=== PATIENT | male | born 1955 | race Caucasian/White ===

== ENCOUNTER 2017-05-22 17:18 | Inpatient (IN) | payer OTHER ==
[~2017-05-22] VITALS: Ht 185.4 cm; Wt 78.1 kg
[2017-05-22 17:22] VITALS: BP 132/80
[2017-05-22 18:32] LABS: BASO % 0.4 % (0.0-1.0); EOS % 0.2 % (1.0-4.0); HEMATOCRIT 47.3 % (42.0-52.0); HEMOGLOBIN 16.1 g/dl (14.0-18.0); LYMPH # 1.2 10*3/uL (1.3-4.4); LYMPH % 14.7 % (27.0-41.0); MEAN CELL VOLUME 97.5 fl (80.0-94.0); MEAN CORPUSCULAR HGB 33.2 pg (27.0-31.0); MONO # 0.7 10*3/uL (0.1-1.0); MONO % 8.3 % (3.0-9.0); NEUT # 6.3 10*3/uL (2.3-7.9); NEUT % 75.9 % (47.0-73.0); PLATELET COUNT AUTOMATED 122 10*3/uL (130-400); RED BLOOD COUNT 4.85 10*6/uL (4.50-5.90); RED CELL DISTRI WIDTH 12.8 % (0-14.5); WHITE BLOOD COUNT 8.3 10*3/uL (4.8-10.8)
[2017-05-22 18:46] LABS: ALBUMIN 3.1 gm/dl (3.1-4.5); ALKALINE PHOSPHATASE 100 U/L (45-117); CHLORIDE 101 mmol/L (98-107); CPK 624 U/L (39-308); CREATININE 0.61 mg/dL (0.70-1.30); POTASSIUM 3.7 mmol/L (3.5-5.1); SGOT/AST 91 IU/L (3-35); SGPT/ALT 73 U/L (12-78); SODIUM 135 mmol/L (136-145); TOTAL PROTEIN 7.1 gm/dL (6.4-8.2)
[2017-05-22 18:57] LABS: BUN 1 mg/dl (7-24)
[2017-05-22 19:42] VITALS: BP 125/72
[2017-05-22 21:11] VITALS: BP 146/81
[2017-05-22] MEDS ORDERED: PROZAC40 M1 PO (21:54)
[2017-05-23] VITALS: BP 146/80
[2017-05-23 03:17] LABS: BASO % 0.4 % (0.0-1.0); EOS % 0.4 % (1.0-4.0); HEMATOCRIT 44.7 % (42.0-52.0); LYMPH # 1.6 10*3/uL (1.3-4.4); LYMPH % 22.1 % (27.0-41.0); MEAN CELL VOLUME 97.6 fl (80.0-94.0); MEAN CORPUSCULAR HGB 32.8 pg (27.0-31.0); MEAN CORPUSCULAR HGB CONC 33.6 g/dl (33.0-37.0); MONO # 0.8 10*3/uL (0.1-1.0); MONO % 10.7 % (3.0-9.0); NEUT # 4.8 10*3/uL (2.3-7.9); NEUT % 66.1 % (47.0-73.0); PLATELET COUNT AUTOMATED 113 10*3/uL (130-400); RED BLOOD COUNT 4.58 10*6/uL (4.50-5.90); RED CELL DISTRI WIDTH 12.9 % (0-14.5); WHITE BLOOD COUNT 7.3 10*3/uL (4.8-10.8)
[2017-05-23 03:29] LABS: ACT PARTIAL THROMBO TIME 29.4 SECONDS (20.8-31.5); INTERNATIONAL NORM RATIO 0.9 (2.0-3.5)
[2017-05-23 03:33] LABS: ALBUMIN 2.8 gm/dl (3.1-4.5); ALKALINE PHOSPHATASE 92 U/L (45-117); BUN 1 mg/dl (7-24); CHLORIDE 105 mmol/L (98-107); CHOLESTEROL 165 mg/dL (<200); CREATININE 0.57 mg/dL (0.70-1.30); FREE T4 0.83 ng/dl (0.76-1.46); HDL CHOLESTEROL 122 mg/dl (40-60); LDL CHOLESTEROL 34 mg/dL (9-159); PHOSPHOROUS 3.5 mg/dL (2.5-4.9); POTASSIUM 3.9 mmol/L (3.5-5.1); SGOT/AST 75 IU/L (3-35); SGPT/ALT 67 U/L (12-78); SODIUM 139 mmol/L (136-145); TOTAL PROTEIN 6.5 gm/dL (6.4-8.2); TRIGLYCERIDES 45 mg/dl (<150); VLDL CHOLESTEROL 9 mg/dL (6-40)
[2017-05-23 04:00] VITALS: BP 162/90
[2017-05-23 05:25] LABS: BILIRUBIN NEGATIVE (NEGATIVE); BLOOD TRACE-INTACT (NEGATIVE); CLARITY CLEAR (CLEAR); COLOR YELLOW (YELLOW); GLUCOSE NEGATIVE (NEGATIVE); KETONE NEGATIVE (NEGATIVE); LEUKO ESTERASE NEGATIVE (NEGATIVE); NITRITE NEGATIVE (NEGATIVE); UROBILINOGEN 0.2 E.U./dl (0.2-1.0)
[2017-05-23 05:36] LABS: URINE AMPHETAMINES < 1000 (1000ng/ml); URINE BARBITURATES < 200 (200ng/ml); URINE BENZODIAZEPINES < 200 (200ng/ml); URINE CANNABINOIDS (THC) < 50 (50ng/ml); URINE COCAINE < 300 (300ng/ml); URINE METHADONE < 300 (300ng/ml); URINE OPIATES < 300 (300ng/ml); WBC 0-2 wbc/hpf (0-5)
[2017-05-23 05:37] LABS: URINE PHENCYCLIDINE < 25 (25ng/ml)
[2017-05-23 08:00] VITALS: BP 168/96
[2017-05-23 09:00] LABS: VITAMIN D, 25-HYDROXY 9.5 ng/mL (30-100)
[2017-05-23 12:00] VITALS: BP 168/96
[2017-05-23 16:00] VITALS: BP 146/85
[2017-05-23 20:00] VITALS: BP 164/89
[2017-05-24] VITALS: BP 163/88
[2017-05-24 04:00] VITALS: BP 159/90
[2017-05-24 06:09] LABS: ALBUMIN 2.6 gm/dl (3.1-4.5); ALKALINE PHOSPHATASE 93 U/L (45-117); BUN 3 mg/dl (7-24); CHLORIDE 101 mmol/L (98-107); CREATININE 0.52 mg/dL (0.70-1.30); POTASSIUM 3.5 mmol/L (3.5-5.1); SGOT/AST 61 IU/L (3-35); SGPT/ALT 56 U/L (12-78); SODIUM 138 mmol/L (136-145); TOTAL PROTEIN 6.1 gm/dL (6.4-8.2)
[2017-05-24 08:00] VITALS: BP 156/90
[2017-05-24 12:00] VITALS: BP 149/91
[2017-05-24 16:00] VITALS: BP 142/94
[2017-05-24 20:00] VITALS: BP 141/87
[2017-05-25] VITALS: BP 136/70
[2017-05-25 04:00] VITALS: BP 169/95
[2017-05-25 08:00] VITALS: BP 152/100
[2017-05-25 12:00] VITALS: BP 154/94
[2017-05-25 15:48] VITALS: BP 148/90
[2017-05-25 20:00] VITALS: BP 136/84
[2017-05-26 04:00] VITALS: BP 148/90
[2017-05-26 04:22] LABS: BASO % 0.4 % (0.0-1.0); EOS # 0.1 10*3/uL (0.0-0.4); EOS % 1.5 % (1.0-4.0); HEMATOCRIT 42.3 % (42.0-52.0); HEMOGLOBIN 14.8 g/dl (14.0-18.0); LYMPH # 1.6 10*3/uL (1.3-4.4); LYMPH % 22.4 % (27.0-41.0); MEAN CORPUSCULAR HGB 33.9 pg (27.0-31.0); MEAN PLATELET VOLUME 10.6 fl (9.6-12.3); MONO # 0.9 10*3/uL (0.1-1.0); MONO % 12.7 % (3.0-9.0); NEUT # 4.5 10*3/uL (2.3-7.9); NEUT % 62.9 % (47.0-73.0); PLATELET COUNT AUTOMATED 116 10*3/uL (130-400); RED BLOOD COUNT 4.36 10*6/uL (4.50-5.90); RED CELL DISTRI WIDTH 12.6 % (0-14.5); WHITE BLOOD COUNT 7.2 10*3/uL (4.8-10.8)
[2017-05-26 08:00] VITALS: BP 199/90
[2017-05-26 12:00] VITALS: BP 145/98
[2017-05-26 16:00] VITALS: BP 142/86
[2017-05-26 20:00] VITALS: BP 158/88
[2017-05-27] VITALS: BP 145/88
[2017-05-27 06:59] LABS: CREATININE 0.72 mg/dL (0.70-1.30)
[2017-05-27 08:00] VITALS: BP 149/90
[2017-05-27 12:00] VITALS: BP 137/86
[2017-05-27 16:00] VITALS: BP 148/85
[2017-05-27 20:00] VITALS: BP 138/90
[2017-05-28] VITALS: BP 135/81
[2017-05-28 08:00] VITALS: BP 145/84
[2017-05-28 12:00] VITALS: BP 112/58
[2017-05-28 16:00] VITALS: BP 136/83
[2017-05-28 20:00] VITALS: BP 137/74
[2017-05-29] VITALS: BP 129/74
[2017-05-29 06:22] LABS: BASO % 0.3 % (0.0-1.0); EOS # 0.1 10*3/uL (0.0-0.4); HEMOGLOBIN 14.2 g/dl (14.0-18.0); LYMPH # 1.4 10*3/uL (1.3-4.4); LYMPH % 20.9 % (27.0-41.0); MEAN CELL VOLUME 96.7 fl (80.0-94.0); MEAN CORPUSCULAR HGB 33.5 pg (27.0-31.0); MEAN CORPUSCULAR HGB CONC 34.6 g/dl (33.0-37.0); MEAN PLATELET VOLUME 10.4 fl (9.6-12.3); MONO # 1.2 10*3/uL (0.1-1.0); MONO % 17.5 % (3.0-9.0); NEUT # 4.1 10*3/uL (2.3-7.9); NEUT % 59.9 % (47.0-73.0); PLATELET COUNT AUTOMATED 173 10*3/uL (130-400); RED BLOOD COUNT 4.24 10*6/uL (4.50-5.90); RED CELL DISTRI WIDTH 12.7 % (0-14.5); WHITE BLOOD COUNT 6.9 10*3/uL (4.8-10.8)
[2017-05-29 06:49] LABS: ALBUMIN 2.4 gm/dl (3.1-4.5); ALKALINE PHOSPHATASE 74 U/L (45-117); BUN 6 mg/dl (7-24); CHLORIDE 97 mmol/L (98-107); CREATININE 0.58 mg/dL (0.70-1.30); SGOT/AST 28 IU/L (3-35); SGPT/ALT 36 U/L (12-78); SODIUM 137 mmol/L (136-145); TOTAL PROTEIN 6.6 gm/dL (6.4-8.2)
[2017-05-29 08:00] VITALS: BP 136/78; BP 156/90
[2017-05-29 12:00] VITALS: BP 155/86
[2017-05-29 16:00] VITALS: BP 145/83
[2017-05-29 20:00] VITALS: BP 144/76
[2017-05-30] VITALS: BP 150/90
[2017-05-30 08:00] VITALS: BP 146/86
[2017-05-30 12:00] VITALS: BP 142/67
[2017-05-30] MEDS ORDERED: LISINOPRIL10 M1 PO (12:21)
[2017-05-30] MEDS ORDERED: NATURE'S BLEND F1 MG PO (12:21)
[2017-05-30] MEDS ORDERED: NATURE'S BLEND100 M2 PO (12:21)
[2017-05-30] MEDS ORDERED: MOTRIN 600 MG E4 TAB PO (12:21)
[2017-05-30] MEDS ORDERED: METOPROLOL SUCC25 M2 PO (12:21)
[2017-05-30] MEDS ORDERED: Vitamin D PO (12:21)
== END 2017-05-30 14:34 | disposition other institution (70) | DRG 552 ==
LOC: ED 17:18 → EDHOLD 20:05 → ICCU 20:05 → 4E 20:05 → ICCU 20:58 → 4E 05-26 07:40
PROVIDERS: Emergency Medicine; Internal Medicine; Registered Nurse; Student in an Organized Health Care Education/Training Program
DX: S22.080A Wedge compression fracture of T11-T12 vertebra, initial encounter for closed fracture (principal); F10.121 Alcohol abuse with intoxication delirium; E44.0 Moderate protein-calorie malnutrition; D69.6 Thrombocytopenia, unspecified; R65.10 Systemic inflammatory response syndrome (SIRS) of non-infectious origin without acute organ dysfunction; E87.1 Hypo-osmolality and hyponatremia; E83.51 Hypocalcemia; S32.030A Wedge compression fracture of third lumbar vertebra, initial encounter for closed fracture; R55 Syncope and collapse; I10 Essential (primary) hypertension; F32.9 Major depressive disorder, single episode, unspecified; F41.9 Anxiety disorder, unspecified; F17.210 Nicotine dependence, cigarettes, uncomplicated; R19.7 Diarrhea, unspecified; R74.0 Nonspecific elevation of levels of transaminase and lactic acid dehydrogenase [LDH]; D75.89 Other specified diseases of blood and blood-forming organs; D72.810 Lymphocytopenia; M47.892 Other spondylosis, cervical region; W18.30XA Fall on same level, unspecified, initial encounter; Z68.23 Body mass index [BMI] 23.0-23.9, adult; Y93.89 Activity, other specified; Y92.89 Other specified places as the place of occurrence of the external cause; Y99.8 Other external cause status; Z79.899 Other long term (current) drug therapy

== ENCOUNTER 2017-07-13 14:14 | Inpatient (IN) | payer OTHER ==
[~2017-07-13] VITALS: Ht 182.8 cm; Wt 79.4 kg
--- NOTE | ~2017-07-13 | PR ---
[place], [place] PROGRESS NOTE NAME: RACHEL RAMÍREZ UNIT #: [id number] ROOM: 515 DOCTOR: LATRELL PARIS BIRTHDATE: [birth year] DOS: 07/17/2017 SUBJECTIVE: The patient offers no complaints, states he is feeling well. Describes a good appetite without nausea, vomiting, diarrhea. Denies orthopnea, PND, dyspnea. PHYSICAL EXAMINATION: VITAL SIGNS: Blood pressure is 145/90, pulse is 100, respirations 18, temperature 97 degrees. GENERAL APPEARANCE: A well-appearing male, awake, alert, oriented x 3. No apparent distress ____. HEENT: Conjunctivae pink and moist. NECK: There is no JVD appreciated. LUNGS: Clear to auscultation and percussion. HEART: Regular without S3 gallop or rub. ABDOMEN: Soft, positive bowel sounds x 4. EXTREMITIES: No clubbing, cyanosis, no edema noted. LABORATORY DATA: Today, sodium was 121, potassium 3.9, chloride 93, CO2 of 28, BUN 4, creatinine 0.48, glucose is 154, phosphorus 0.8, magnesium is 2.0, calcium 7.6, albumin 3.2, corrected calcium is 9.0. Urine is yellow and clear in color, specific gravity of 1.015 with 15 rbc's, wbc's with trace bacteria noted. IMPRESSION: 1. Hyponatremia. Continues to improve at appropriate rate. Currently IV fluids have been changed from hypertonic with ____ solution of half normal saline with 40 mEq of potassium. 2. Hypokalemia. This has been supplemented with oral and IV potassium as being managed by the primary service. RECOMMENDATIONS: Agree with current management and IV fluids as ordered. Continue to monitor electrolytes daily and replace as needed. He is otherwise ____ from a renal perspective and we will sign off. Thank you for allowing us to participate in the care of the patient. [place], [place] PROGRESS NOTE NAME: RACHEL RAMÍREZ UNIT #: [id number] ROOM: 515 DOCTOR: LATRELL MADDENPARIS BIRTHDATE: [birth year] PARIS SAMS DO CM:CLARA [id number] PARIS SAMS DO 07/18/17 1658 interface
--- NOTE | ~2017-07-13 | PR ---
[place], [place] PROGRESS NOTE NAME: RACHEL RAMÍREZ UNIT #: [id number] ROOM: [facility] DOCTOR: JONNIE NARANJO MD BIRTHDATE: [birth year] DOS: 07/15/2017 SUBJECTIVE: The patient was seen and evaluated in followup of hyponatremia, remains in the ICU, overall doing well, though does not report any specific complaints. OBJECTIVE: VITAL SIGNS: Temperature 98.1, 98, 18, 151/84, 95% on room air. GENERAL: Awake, alert and oriented without acute distress, unkempt appearance. HEENT: Normocephalic, atraumatic. LUNGS: Clear. Diminished at bilateral bases. CARDIOVASCULAR: Regular rate. No rub. Slightly tachycardic, but high normal at this time. ABDOMEN: Soft, nontender. EXTREMITIES: Without cyanosis, clubbing or edema. LABORATORY DATA AND DIAGNOSTICS: White blood cell count 11.2, hemoglobin 13.8, platelets 129. Sodium is 125, up nicely from 122 and 121, rate had to be decreased because of rapid correction initially with severe hyponatremia. BUN and creatinine are 3 and 0.62, potassium 3.4, calcium 7.6, albumin 2.4. ASSESSMENT AND PLAN: 1. Hyponatremia was severe, rate of correction was rapid because of her original severe hyponatremia, now improving and rate is acceptable. Continue on D5W. Hopefully, we will titrate down the rate of this maintenance IV fluids in the next 12 to 24 hours and eventually stop all altogether and allow for ____ correction, as I suspect much of this was beer potomania and low solute intake. He seems to be eating a bit better now. 2. Hypokalemia is also being replaced with maintenance IV fluids and oral intake. 3. Alcohol abuse, monitor for withdrawal symptoms. 4. Hypertension, fair control. JONNIE NARANJO MD CM:PNTRANS JONNIE NARANJO MD 07/17/1739 interface
--- NOTE | ~2017-07-13 | CON ---
[place], [place] REPORT OF CONSULTATION NAME: RACHEL RAMÍREZ UNIT #: [id number] ROOM: [facility] DOCTOR: LILIBETH GARCIA MD BIRTHDATE: [birth year] DOS: 07/14/2017 REASON FOR CONSULTATION: Hyponatremia. HISTORY OF PRESENT ILLNESS: The patient is a 61-year-old male. He was admitted to the hospital yesterday. He presented apparently being found down by a friend on the floor. The patient is an alcoholic. He does not recall the incident. Apparently, he was drinking prior to this event. He gives a history of hypertension. Per the ER notes, he was intoxicated during the evaluation of him. He had a CT scan of the head, which showed no acute abnormalities. He had routine labs, which showed severe hyponatremia with sodium of 108. The patient was started on a banana bag at 100 mL per hour. Initial BUN and creatinine were 4 and 0.5. We were consulted yesterday. I was called by the ICU nurse. I gave instructions to decrease the banana bag to 50 mL per hour and to call with lab results if the sodium level was greater than 115. Labs were ordered every 6 hours by my instructions. It seems he had some improvement to level of 113 and this morning's labs showed sodium of 119. I was called with this lab and discussed with the nurse to change the fluids to half normal saline at 50 mL per hour with potassium since he did have hypokalemia. He also was ordered an oral potassium supplement. When I had seen the patient this afternoon, he was sitting in bed. He was awake and alert, but was somewhat lethargic. He had a tray in front of him and asked me if this was his to eat. It does not appear he has had issues with hyponatremia. He was here in the hospital about 2 months ago, which showed normal sodium levels. ALLERGIES: No known drug allergies. HOME MEDICATIONS: Include ascorbic acid, vitamin D, fluoxetine, ibuprofen, lisinopril, ____, thiamine, trazodone, metoprolol. PAST MEDICAL HISTORY: 1. Hypertension. 2. Anxiety. 3. History of compression fractures. 4. Tobacco abuse. 5. Alcohol abuse. FAMILY HISTORY: Negative for fluid, electrolyte disorders or chronic kidney disease, otherwise noncontributory. SOCIAL HISTORY: As mentioned, he drinks a number of alcoholic beverages per day for a number of years. He also smokes since age 17 pack a day. There is no report of illicit drugs. REVIEW OF SYSTEMS: As per HPI, otherwise a 10-point review of systems was reviewed and was negative or limited. PHYSICAL EXAMINATION: VITAL SIGNS: Temperature 99.5, pulse 110, respiration rate 20, blood pressure 164/90. [place], [place] REPORT OF CONSULTATION NAME: RACHEL RAMÍREZ UNIT #: [id number] ROOM: [facility] DOCTOR: LILIBETH GARCIA MD BIRTHDATE: [birth year] GENERAL: He is lethargic, but awake and arousable, on no acute distress. HEENT AND NECK: Shows no JVD. Sclerae are anicteric. Mucous membranes appeared somewhat dry. Pharynx was clear. Neck is supple. Trachea is midline. No neck lymphadenopathy or thyromegaly. LUNGS: Fairly clear. No crackles, wheezing or rales. No tactile fremitus. He is not using accessory muscles of respiration. HEART: Normal S1, S2. No rub, thrill or gallop. He was tachycardic. ABDOMEN: Soft, mild distention. There is no organomegaly, rigidity, rebound or guarding. There is no CVA tenderness. EXTREMITIES: Showed no edema. There is no lower extremity lymphadenopathy. Distal pulses are 2+. SKIN: Showed no overt rash. There is no petechia or purpura. Skin temperature is warm. NEUROLOGIC: He was awake, alert. He was moving his extremities. Cranial nerves appeared to be intact. LABORATORY DATA: Hemoglobin 15, white count of 10.5, platelets 116. BUN 5, creatinine 0.5, sodium 119, potassium 2.6, CO2 of 24, calcium 7.5, phosphorus 1.5, magnesium 2.0, albumin of 2.5. TSH is within normal limits. IMPRESSION: 1. Hyponatremia, severe. Etiology is likely multifactorial. I suspect the patient may have element of beer potomania with low ____ intake contributing. He may have an element of volume depletion contributing as well. The patient is on medications as well that can lead to syndrome of inappropriate antidiuretic hormone, which may be a partial contributor. 2. Syncope with a question of whether or not it is related to his hyponatremia. 3. History of alcohol abuse. 4. Hypertension. 5. Thrombocytopenia. 6. Malnutrition. 7. Encephalopathy. PLAN: 1. Fluids are to continue with half normal saline for now. Although, this is hypotonic, I do have concerns about the rapid rise in his sodium levels. Potassium has been added in view of his hypokalemia. He does have a number of electrolyte disorders. His phosphorus will be replaced. Continue to monitor labs very carefully and replace electrolytes as needed. 2. BMPs will be drawn every 6 hours. We will adjust his fluids based off of this. 3. Monitor very closely for delirium tremens. 5. Increase nutrition. 6. Continue supportive care. Thank you for this consultation. We will follow with you. [place], [place] REPORT OF CONSULTATION NAME: RACHEL RAMÍREZ UNIT #: [id number] ROOM: [facility] DOCTOR: RADHA PALAFOX,LILIBETH Mccurdy BIRTHDATE: [birth year] LILIBETH GARCIA MD CM:CONSTR:REPORT OF CONSULTATION 24 07/14/171956 interface
[~2017-07-13 14:14] MED LIST: LISINOPRIL10 M1 PO; METOPROLOL SUCC25 M2 PO; MOTRIN 600 MG E4 TAB PO; NATURE'S BLEND F1 MG PO; NATURE'S BLEND100 M2 PO; PROZAC40 M1 PO; Vitamin D PO
[2017-07-13 14:16] VITALS: BP 161/80
[2017-07-13 14:43] LABS: HEMATOCRIT 43.1 % (42.0-52.0); HEMOGLOBIN 16.3 g/dl (14.0-18.0); MEAN CELL VOLUME 87.6 fl (80.0-94.0); MEAN CORPUSCULAR HGB 33.1 pg (27.0-31.0); MEAN PLATELET VOLUME 9.5 fl (9.6-12.3); PLATELET COUNT AUTOMATED 157 10*3/uL (130-400); RED BLOOD COUNT 4.92 10*6/uL (4.50-5.90); RED CELL DISTRI WIDTH 13.2 % (0-14.5); WHITE BLOOD COUNT 15.4 10*3/uL (4.8-10.8)
[2017-07-13 14:53] LABS: ALKALINE PHOSPHATASE 97 U/L (45-117); BUN 4 mg/dl (7-24); CREATININE 0.53 mg/dL (0.70-1.30); POTASSIUM 3.5 mmol/L (3.5-5.1); SGOT/AST 74 IU/L (3-35); SGPT/ALT 42 U/L (12-78); TOTAL PROTEIN 6.5 gm/dL (6.4-8.2)
[2017-07-13 14:56] LABS: SODIUM 108 mmol/L (136-145)
[2017-07-13 14:57] LABS: ACETAMINOPHEN (TYLENOL) < 2.0 ug/ml (10-30); CHLORIDE 73 mmol/L (98-107)
[2017-07-13 15:00] VITALS: BP 132/90
[2017-07-13 15:05] LABS: MEAN CORPUSCULAR HGB CONC 37.8 g/dl (33.0-37.0)
[2017-07-13 15:08] LABS: TOTAL CELLS COUNTED 100 #CELLS
[2017-07-13 15:09] LABS: PLATELET SUFFICIENCY NORMAL (NORMAL)
[2017-07-13 16:00] VITALS: BP 163/100
[2017-07-13] MEDS ORDERED: ZYPREXA10 M1 PO (16:31)
[2017-07-13] MEDS ORDERED: TRAZODONE50 MG PO (16:32)
[2017-07-13 17:03] VITALS: BP 154/78
[2017-07-13 17:12] VITALS: BP 171/90
[2017-07-13] MEDS ORDERED: VITAMIN D50000 UNIT PO (17:29)
[2017-07-13 17:30] LABS: ABG BASE EXCESS -3.4 mmol/L (-2.0-2.0); ABG HCO3 16.9 mmol/l (22-26); ARTERIAL BLOOD GAS PCO2 20.7 mmHg (35-45); ARTERIAL BLOOD GAS PH 7.522 (7.35-7.45); ARTERIAL BLOOD GAS PO2 87.3 mmHg (80-90)
[2017-07-13] MEDS ORDERED: ASCORBIC ACID500 M2 PO (17:30)
[2017-07-13] MEDS ORDERED: METOPROLOL25 MG PO (17:31)
[2017-07-13 19:09] LABS: BILIRUBIN NEGATIVE (NEGATIVE); BLOOD 3+ (NEGATIVE); CLARITY CLOUDY (CLEAR); COLOR YELLOW (YELLOW); GLUCOSE NEGATIVE (NEGATIVE); KETONE 1+ (NEGATIVE); LEUKO ESTERASE NEGATIVE (NEGATIVE); NITRITE NEGATIVE (NEGATIVE); SPECIFIC GRAVITY 1.025 (1.005-1.030)
[2017-07-13 19:22] LABS: URINE CHLORIDE, RANDOM 89 mmol/L
[2017-07-13 19:24] LABS: BACTERIA 4+; MUCOUS TRACE
[2017-07-13 19:30] LABS: URINE AMPHETAMINES < 1000 (1000ng/ml); URINE BARBITURATES < 200 (200ng/ml); URINE BENZODIAZEPINES < 200 (200ng/ml); URINE CANNABINOIDS (THC) < 50 (50ng/ml); URINE COCAINE < 300 (300ng/ml); URINE METHADONE < 300 (300ng/ml); URINE OPIATES < 300 (300ng/ml); URINE PHENCYCLIDINE < 25 (25ng/ml)
[2017-07-13 20:00] VITALS: BP 164/98
[2017-07-14] VITALS: BP 97/60
[2017-07-14 00:40] LABS: BUN 4 mg/dl (7-24); CHLORIDE 80 mmol/L (98-107); CREATININE 0.52 mg/dL (0.70-1.30); POTASSIUM 3.1 mmol/L (3.5-5.1)
[2017-07-14 00:43] LABS: SODIUM 113 mmol/L (136-145)
[2017-07-14 04:00] VITALS: BP 126/73
[2017-07-14 07:03] LABS: ALBUMIN 2.5 gm/dl (3.1-4.5); ALKALINE PHOSPHATASE 83 U/L (45-117); BUN 5 mg/dl (7-24); CHLORIDE 83 mmol/L (98-107); CHOLESTEROL 94 mg/dL (<200); CREATININE 0.47 mg/dL (0.70-1.30); FREE T4 1.23 ng/dl (0.76-1.46); HDL CHOLESTEROL 79 mg/dl (40-60); LDL CHOLESTEROL 4 mg/dL (9-159); PHOSPHOROUS 1.5 mg/dL (2.5-4.9); POTASSIUM 2.6 mmol/L (3.5-5.1); SGOT/AST 62 IU/L (3-35); SGPT/ALT 37 U/L (12-78); TOTAL PROTEIN 5.5 gm/dL (6.4-8.2); TRIGLYCERIDES 57 mg/dl (<150); VLDL CHOLESTEROL 11 mg/dL (6-40)
[2017-07-14 07:08] LABS: THYROID STIM HORMONE (HS) 0.688 uIU/ml (0.358-4.75)
[2017-07-14 07:09] LABS: BASO % 0.2 % (0.0-1.0); EOS % 0.1 % (1.0-4.0); HEMATOCRIT 40.7 % (42.0-52.0); LYMPH # 0.7 10*3/uL (1.3-4.4); MEAN CELL VOLUME 89.6 fl (80.0-94.0); MEAN CORPUSCULAR HGB CONC 36.9 g/dl (33.0-37.0); MEAN PLATELET VOLUME 10.1 fl (9.6-12.3); MONO # 0.8 10*3/uL (0.1-1.0); MONO % 7.9 % (3.0-9.0); NEUT # 8.8 10*3/uL (2.3-7.9); PLATELET COUNT AUTOMATED 116 10*3/uL (130-400); RED BLOOD COUNT 4.54 10*6/uL (4.50-5.90); RED CELL DISTRI WIDTH 13.4 % (0-14.5); WHITE BLOOD COUNT 10.5 10*3/uL (4.8-10.8)
[2017-07-14 07:10] LABS: SODIUM 119 mmol/L (136-145)
[2017-07-14 08:00] VITALS: BP 148/84
[2017-07-14 08:19] LABS: VITAMIN D, 25-HYDROXY 23.4 ng/mL (30-100)
[2017-07-14 12:00] VITALS: BP 164/90
[2017-07-14 14:38] LABS: ALBUMIN 2.7 gm/dl (3.1-4.5); ALKALINE PHOSPHATASE 89 U/L (45-117); BUN 4 mg/dl (7-24); CHLORIDE 87 mmol/L (98-107); CREATININE 0.44 mg/dL (0.70-1.30); POTASSIUM 2.9 mmol/L (3.5-5.1); SGOT/AST 59 IU/L (3-35); SGPT/ALT 37 U/L (12-78); SODIUM 121 mmol/L (136-145); TOTAL PROTEIN 6.3 gm/dL (6.4-8.2)
[2017-07-14 16:00] VITALS: BP 108/75
[2017-07-14 20:00] VITALS: BP 108/75
[2017-07-14 20:10] LABS: ALBUMIN 2.6 gm/dl (3.1-4.5); ALKALINE PHOSPHATASE 77 U/L (45-117); BUN 4 mg/dl (7-24); CHLORIDE 88 mmol/L (98-107); CREATININE 0.59 mg/dL (0.70-1.30); PHOSPHOROUS 2.3 mg/dL (2.5-4.9); POTASSIUM 3.5 mmol/L (3.5-5.1); SGOT/AST 48 IU/L (3-35); SGPT/ALT 35 U/L (12-78); SODIUM 122 mmol/L (136-145)
[2017-07-15] VITALS: BP 131/78
[2017-07-15 02:34] LABS: ALBUMIN 2.4 gm/dl (3.1-4.5); ALKALINE PHOSPHATASE 71 U/L (45-117); BUN 3 mg/dl (7-24); CHLORIDE 90 mmol/L (98-107); CREATININE 0.62 mg/dL (0.70-1.30); PHOSPHOROUS 2.5 mg/dL (2.5-4.9); POTASSIUM 3.4 mmol/L (3.5-5.1); SGOT/AST 38 IU/L (3-35); SGPT/ALT 31 U/L (12-78); SODIUM 125 mmol/L (136-145); TOTAL PROTEIN 5.8 gm/dL (6.4-8.2)
[2017-07-15 04:00] VITALS: BP 145/76
[2017-07-15 06:15] LABS: HEMATOCRIT 38.3 % (42.0-52.0); HEMOGLOBIN 13.8 g/dl (14.0-18.0); LYMPH # 0.8 10*3/uL (1.3-4.4); LYMPH % 6.9 % (27.0-41.0); MEAN CELL VOLUME 91.2 fl (80.0-94.0); MEAN CORPUSCULAR HGB 32.9 pg (27.0-31.0); MEAN PLATELET VOLUME 10.4 fl (9.6-12.3); MONO # 0.9 10*3/uL (0.1-1.0); MONO % 7.7 % (3.0-9.0); NEUT # 9.5 10*3/uL (2.3-7.9); NEUT % 84.8 % (47.0-73.0); PLATELET COUNT AUTOMATED 129 10*3/uL (130-400); RED CELL DISTRI WIDTH 13.8 % (0-14.5); WHITE BLOOD COUNT 11.2 10*3/uL (4.8-10.8)
[2017-07-15 08:00] VITALS: BP 151/84
[2017-07-15 12:00] VITALS: BP 151/92
[2017-07-15 16:00] VITALS: BP 128/79
[2017-07-15 20:00] VITALS: BP 128/75
[2017-07-16] VITALS: BP 135/75
[2017-07-16 04:00] VITALS: BP 171/83
[2017-07-16 05:17] LABS: BASO % 0.1 % (0.0-1.0); EOS % 0.1 % (1.0-4.0); HEMATOCRIT 37.5 % (42.0-52.0); HEMOGLOBIN 13.7 g/dl (14.0-18.0); LYMPH # 0.4 10*3/uL (1.3-4.4); LYMPH % 3.2 % (27.0-41.0); MEAN CELL VOLUME 91.7 fl (80.0-94.0); MEAN CORPUSCULAR HGB 33.5 pg (27.0-31.0); MEAN CORPUSCULAR HGB CONC 36.5 g/dl (33.0-37.0); MEAN PLATELET VOLUME 10.5 fl (9.6-12.3); MONO # 0.7 10*3/uL (0.1-1.0); MONO % 6.1 % (3.0-9.0); PLATELET COUNT AUTOMATED 148 10*3/uL (130-400); RED BLOOD COUNT 4.09 10*6/uL (4.50-5.90); RED CELL DISTRI WIDTH 13.9 % (0-14.5); WHITE BLOOD COUNT 11.1 10*3/uL (4.8-10.8)
[2017-07-16 05:36] LABS: ALBUMIN 2.3 gm/dl (3.1-4.5); ALKALINE PHOSPHATASE 65 U/L (45-117); BUN 3 mg/dl (7-24); CHLORIDE 87 mmol/L (98-107); CREATININE 0.54 mg/dL (0.70-1.30); POTASSIUM 3.3 mmol/L (3.5-5.1); SGOT/AST 25 IU/L (3-35); SGPT/ALT 26 U/L (12-78); SODIUM 124 mmol/L (136-145); TOTAL PROTEIN 6.1 gm/dL (6.4-8.2)
[2017-07-16 08:00] VITALS: BP 155/91
[2017-07-16 12:00] VITALS: BP 135/81
[2017-07-16 14:22] LABS: BUN 4 mg/dl (7-24); CHLORIDE 87 mmol/L (98-107); CREATININE 0.61 mg/dL (0.70-1.30); POTASSIUM 3.6 mmol/L (3.5-5.1); SODIUM 125 mmol/L (136-145)
[2017-07-16 16:00] VITALS: BP 136/80
[2017-07-16 20:00] VITALS: BP 139/78
[2017-07-16 20:18] LABS: BUN 7 mg/dl (7-24); CHLORIDE 91 mmol/L (98-107); CREATININE 0.66 mg/dL (0.70-1.30); POTASSIUM 3.6 mmol/L (3.5-5.1); SODIUM 129 mmol/L (136-145)
[2017-07-17] VITALS: BP 142/82
[2017-07-17 04:00] VITALS: BP 142/88
[2017-07-17 05:30] LABS: ALBUMIN 2.2 gm/dl (3.1-4.5); BUN 4 mg/dl (7-24); CHLORIDE 93 mmol/L (98-107); CREATININE 0.48 mg/dL (0.70-1.30); PHOSPHOROUS 3.8 mg/dL (2.5-4.9); POTASSIUM 2.9 mmol/L (3.5-5.1); SODIUM 131 mmol/L (136-145)
[2017-07-17 08:00] VITALS: BP 145/90
[2017-07-17 10:14] LABS: BILIRUBIN NEGATIVE (NEGATIVE); BLOOD NEGATIVE (NEGATIVE); CLARITY SL CLOUDY (CLEAR); COLOR YELLOW (YELLOW); GLUCOSE 3+ (NEGATIVE); KETONE NEGATIVE (NEGATIVE); LEUKO ESTERASE NEGATIVE (NEGATIVE); NITRITE NEGATIVE (NEGATIVE); PH 7.5 (5.0-9.0); SPECIFIC GRAVITY 1.015 (1.005-1.030); UROBILINOGEN 0.2 E.U./dl (0.2-1.0)
[2017-07-17 10:39] LABS: BACTERIA TRACE
[2017-07-17 16:00] VITALS: BP 150/83
[2017-07-17 20:00] VITALS: BP 146/76
[2017-07-18] VITALS: BP 149/81
[2017-07-18 07:26] LABS: BASO % 0.1 % (0.0-1.0); HEMATOCRIT 38.1 % (42.0-52.0); LYMPH # 1.2 10*3/uL (1.3-4.4); LYMPH % 13.3 % (27.0-41.0); MEAN CELL VOLUME 97.2 fl (80.0-94.0); MEAN CORPUSCULAR HGB 33.2 pg (27.0-31.0); MEAN CORPUSCULAR HGB CONC 34.1 g/dl (33.0-37.0); MEAN PLATELET VOLUME 10.1 fl (9.6-12.3); MONO # 1.4 10*3/uL (0.1-1.0); MONO % 15.8 % (3.0-9.0); NEUT # 6.1 10*3/uL (2.3-7.9); NEUT % 69.3 % (47.0-73.0); PLATELET COUNT AUTOMATED 189 10*3/uL (130-400); RED BLOOD COUNT 3.92 10*6/uL (4.50-5.90); RED CELL DISTRI WIDTH 14.2 % (0-14.5); WHITE BLOOD COUNT 8.9 10*3/uL (4.8-10.8)
[2017-07-18 07:50] LABS: BUN 8 mg/dl (7-24); CHLORIDE 96 mmol/L (98-107); CREATININE 0.55 mg/dL (0.70-1.30); POTASSIUM 3.7 mmol/L (3.5-5.1); SODIUM 133 mmol/L (136-145)
[2017-07-18 08:00] VITALS: BP 149/81
[2017-07-18] MEDS ORDERED: PROTONIX40 MG PO (13:53)
== END 2017-07-18 12:04 | disposition home or self-care (01) | DRG 640 ==
LOC: ED 14:14 → EDHOLD 15:23 → ICCU 15:23 → 4E 15:52 → EDHOLD 15:52 → 4E 15:52 → ICCU 15:59 → 5E 07-17 13:40
PROVIDERS: Emergency Medicine; Family Medicine; Internal Medicine Nephrology; Nurse Practitioner Family; Student in an Organized Health Care Education/Training Program
DX: E87.1 Hypo-osmolality and hyponatremia (principal); G93.41 Metabolic encephalopathy; E43 Unspecified severe protein-calorie malnutrition; J18.9 Pneumonia, unspecified organism; D69.6 Thrombocytopenia, unspecified; M62.82 Rhabdomyolysis; E83.39 Other disorders of phosphorus metabolism; E87.8 Other disorders of electrolyte and fluid balance, not elsewhere classified; R74.0 Nonspecific elevation of levels of transaminase and lactic acid dehydrogenase [LDH]; R73.9 Hyperglycemia, unspecified; E87.6 Hypokalemia; F17.210 Nicotine dependence, cigarettes, uncomplicated; D64.9 Anemia, unspecified; R55 Syncope and collapse; K29.20 Alcoholic gastritis without bleeding; F10.229 Alcohol dependence with intoxication, unspecified; W18.39XA Other fall on same level, initial encounter; F32.9 Major depressive disorder, single episode, unspecified; F41.9 Anxiety disorder, unspecified; I10 Essential (primary) hypertension; Z68.23 Body mass index [BMI] 23.0-23.9, adult; Y93.89 Activity, other specified; Y92.89 Other specified places as the place of occurrence of the external cause; Y99.8 Other external cause status; Z71.6 Tobacco abuse counseling; Z79.899 Other long term (current) drug therapy; Z87.81 Personal history of (healed) traumatic fracture; Z83.3 Family history of diabetes mellitus